=== PATIENT | male | born 2000 | race Caucasian/White ===

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

== ENCOUNTER 2020-01-06 05:13 | Inpatient (IN) | payer OTHER ==
[~2020-01-06] VITALS: Ht 193 cm; Wt 78.0 kg
[2020-01-06] VITALS (512 sets, daily range): BP systolic 101–109; BP diastolic 58–68; PULSE 73–105; TEMP 97.6–100.6; O2SAT 88–100
[2020-01-06 05:45] LABS: BASO # 0.1 (0.0-0.2); BASO % 0.5 % (0.0-2.0); EOS % 0.3 % (0-4.0); GRAN # 4.6 (1.4-6.5); GRAN % 47.2 % (42.2-75.2); HEMATOCRIT 46.9 % (36.0-47.0); HEMOGLOBIN 16.3 g/dl (12.5-16.1); LYMPH # 3.9 (1.2-3.4); LYMPH % 39.8 % (20.0-51.0); MEAN CELL VOLUME 82 fl (80.0-95.0); MEAN CORPUSCULAR HEMOGLOBIN 29 pg (26.0-32.0); MEAN CORPUSCULAR HGB CONC 35 g/dl (33.0-37.0); MEAN PLATELET VOLUME 9.6 fl (7.4-10.4); MONO # 1.2 (0.1-0.6); PLATELET COUNT 131 K/mm3 (130-400); RED BLOOD COUNT 5.69 M/mm3 (4.20-5.60); REDCELL DISTRIBUTION WIDTH-CV 12.3 % (11.5-14.5)
[2020-01-06 05:55] LABS: ALBUMIN 4.6 gm/dL (3.5-5.0); BILIRUBIN,TOTAL 1.4 mg/dL (0.0-1.0); CALCIUM 9.1 mg/dL (8.4-10.2); CREATININE, serum 1.08 (0.66-1.25); POTASSIUM 4.2 mmol/L (3.4-5.0); TOTAL PROTEIN 8.3 gm/dL (6.4-8.2)
[2020-01-06 06:08] LABS: C-REACTIVE PROTEIN 13.6 mg/dL (0.0-0.9)
[2020-01-06 06:20] LABS: COLLECTION METHOD CLEAN CATCH
[2020-01-06 07:06] LABS: HYALINE CAST >12 /lpf; MUCOUS Present /lpf; PH 5 (5-8); SQUAMOUS EPITHELIAL None Seen /hpf; URINE APPEARANCE Hazy; URINE BACTERIA None Seen /hpf; URINE BILIRUBIN Negative (NEGATIVE); URINE BLOOD Negative (NEGATIVE); URINE COLOR Amber; URINE GLUCOSE Negative (NEGATIVE); URINE KETONE Negative (NEGATIVE); URINE LEUKOCYTE ESTERASE Negative (NEGATIVE); URINE NITRATE Negative (NEGATIVE); URINE PROTEIN(semi-quant) 1+ (NEGATIVE); URINE RBC 0-2 /hpf; URINE UROBILINOGEN Negative (NEGATIVE)
--- NOTE | 2020-01-06 14:00 | NUR ---
came by patients room once notified about patient consult. he did not go into patients room but was notified of his case and spoke to the medical imaging technician about his echo and venous duplex results. He said he had no changes to make at this time.
[2020-01-06 18:17] LABS: INR 1.4 (0.8-3.0); PROTHROMBIN TIME 15.7 SECONDS (9.7-12.8)
[2020-01-06 18:20] LABS: PARTIAL THROMBOPLASTIN TIME 41.3 SECONDS (26.0-37.0)
--- NOTE | 2020-01-06 20:20 | NUR ---
called regarding consult on patient.
[2020-01-07] VITALS (402 sets, daily range): BP systolic 103–138; BP diastolic 53–70; PULSE 62–89; TEMP 98–98.9; O2SAT 93–100
[2020-01-07 03:04] LABS: GRAN # 3.9 (1.4-6.5); GRAN % 56.9 % (42.2-75.2); HEMATOCRIT 43.3 % (36.0-47.0); HEMOGLOBIN 15.3 g/dl (12.5-16.1); LYMPH # 1.8 (1.2-3.4); LYMPH % 26.4 % (20.0-51.0); MEAN CELL VOLUME 82 fl (80.0-95.0); MEAN CORPUSCULAR HEMOGLOBIN 29 pg (26.0-32.0); MEAN CORPUSCULAR HGB CONC 35 g/dl (33.0-37.0); MEAN PLATELET VOLUME 9.5 fl (7.4-10.4); MONO # 1.1 (0.1-0.6); MONO % 16.4 % (1.7-9.3); PLATELET COUNT 145 K/mm3 (130-400); RED BLOOD COUNT 5.28 M/mm3 (4.20-5.60); REDCELL DISTRIBUTION WIDTH-CV 12.2 % (11.5-14.5)
[2020-01-07 03:13] LABS: CALCIUM 9.1 mg/dL (8.4-10.2); CREATININE, serum 0.72 (0.66-1.25); POTASSIUM 4.6 mmol/L (3.4-5.0)
--- NOTE | 2020-01-07 08:16 | NUR ---
Patient alert and oriented, answers questions appropriately. See assessment. Lungs CTA, respers even and unlabored. No c/o SOA. VSS. No supplemental oxygen needed. Heart tones strong and even, pulses palpable. Patient c/o bilateral groin pain in upper aspect of groin. No lumps or swelling palpated to groin, no discoloration noted. Pulses palpable to BLE, homans negative. Patient asks appropriate questions r/t diagnosis and cares. Dr Crouch here to see patient. No other c/o at this time.
--- NOTE | 2020-01-07 09:03 | NUR ---
Dr Black here to see patient.
--- NOTE | 2020-01-07 09:19 | NUR ---
Hep XA not drawn at this time. Order to discontinue Heparin gtt in one hour after sq Lovenox given (0918). Reviewed Lovenox adminstration with patient, verbalied understanding. No c/o at this time.
--- NOTE | 2020-01-07 09:46 | NUR ---
Cytotechnologist/Cytology Supervisor contacted patient by phone as patient is COVID positive and in contact isolation. Patient lives in [place] with three roommates and is a student at [employer]. Patient reports he is from [place], [place] where his parents live, Mira (ph#[phone]) and Vinh (ph#[phone]). Patient states his primary care physician is Dr. Panchal in [place]. Patient states he has utilized [facility] on campus in the past. Patient's preferred pharmacy in [place] is [facility] on [address]. Patient does not use any DME and is independent with ADLS. Patient plans to return to his apartment at discharge. SW contacted patient's mother, Mira who reports she just spoke with patient's nurse to get an update. Mira states she is trying to convince patient to spend some time at home in [place] at discharge instead of returning straight to his apartment. LUNA then contacted the [facility] office of student life to notify them of patient's admit date. Patient to transfer up to the medical floor today and SW will continue to follow.
--- NOTE | 2020-01-07 11:39 | NUR ---
Attempted to call report to medical nurse, no answer.
--- NOTE | 2020-01-07 13:00 | NUR ---
Patient transferred to medical floor, all belongings sent with patient. Orientation to unit completed with patient.
--- NOTE | 2020-01-07 13:57 | NUR ---
Pt up to room 306 at 1300, escorted via WC by LESLEY Flores. Pt A&O, independent in room, on room air. tele applied. pt denies dizziness, SOB, n/v/d, numbness or tingling. Pt does have dry cough and states he has some chest discomfort from coughing. BS active, LS diminished, HRRR. No edema noted. Pulses strong bilaterally. RFA and LFA INT IVs both flush w/o difficulty. Pt requested and provided w/ water. No further needs at this time. pt laying in bed watching movie on personal computer.
--- NOTE | 2020-01-07 16:42 | NUR ---
Pt laying in bed watching [place] Girl on laptop, denies needs at this time, VSS.
--- NOTE | 2020-01-07 22:07 | NUR ---
Pt resting in bed watching show on lap top. Meds administered. C/O groin pain, pulses palpable, no discoloration, pt states able to ambulate w/o difficulty. INT to LFA and RFA intact, flushed, dressing CDI. Tele monitor in place. PRN tylenol administered. Water provided. States no concerns at this time. call light within reach. Pt requesting a shower, informed pt to notify staff when he is ready to shower.
[2020-01-08] VITALS: BP 112/78; PULSE 71; TEMP 97.6
--- NOTE | 2020-01-08 01:36 | NUR ---
Pt requested shower. Tele removed, television specialist notified. INT to LFA and RFA wrapped in plastic. Informed pt to notify staff when finished with shower.
[2020-01-08 05:26] VITALS: BP 114/66; PULSE 74; TEMP 98
--- NOTE | 2020-01-08 06:24 | NUR ---
Pt had a shower on this shift. no complaints made. call light within reach.
--- NOTE | 2020-01-08 06:48 | NUR ---
Report given to LESLEY Cooney.
[2020-01-08 07:14] LABS: BASO % 0.6 % (0.0-2.0); EOS # 0.1 (0.0-0.7); GRAN # 2.2 (1.4-6.5); GRAN % 43.4 % (42.2-75.2); HEMATOCRIT 40.7 % (36.0-47.0); HEMOGLOBIN 14.4 g/dl (12.5-16.1); LYMPH # 1.9 (1.2-3.4); LYMPH % 37.7 % (20.0-51.0); MEAN CELL VOLUME 83 fl (80.0-95.0); MEAN CORPUSCULAR HEMOGLOBIN 29 pg (26.0-32.0); MEAN CORPUSCULAR HGB CONC 35 g/dl (33.0-37.0); MEAN PLATELET VOLUME 10.1 fl (7.4-10.4); MONO # 0.9 (0.1-0.6); MONO % 16.9 % (1.7-9.3); PLATELET COUNT 175 K/mm3 (130-400); RED BLOOD COUNT 4.91 M/mm3 (4.20-5.60); REDCELL DISTRIBUTION WIDTH-CV 12.4 % (11.5-14.5)
[2020-01-08 07:30] LABS: CALCIUM 8.9 mg/dL (8.4-10.2); CREATININE, serum 0.88 (0.66-1.25); POTASSIUM 4.4 mmol/L (3.4-5.0)
[2020-01-08 08:20] VITALS: BP 122/72; PULSE 82; TEMP 97.5
--- NOTE | 2020-01-08 09:22 | NUR ---
Pt assessment completed and charted. Lovenox administered per may. Pt A&O, independent in room, laying in bed. pt on room air, breathing is even and unlabored, dry cough present. Pt denies chest pain, dizziness, N/V/D, numbness or tingling, abdominal pain. Pt c/o groin pain bilaterally, requested tylenol and provided. Pt has RFA and LFA INT IV's, both flush w/o difficulty. RFA INT IV appears red and pt states he has some tenderness, not receiving medications IV, will remove and keep LFA INT IV. Pulses strong bilaterally, HRRR, LS diminished throughout. No further needs expressed.
[2020-01-08 12:46] VITALS: PULSE 73; TEMP 97.5
--- NOTE | 2020-01-08 13:39 | NUR ---
Pt doing well, denies needs at this time. Belongings dropped off at ER entrance, delivered to patient.
[2020-01-08 17:45] VITALS: BP 123/72; PULSE 68; TEMP 98.6
[2020-01-08 19:54] VITALS: BP 120/70; PULSE 79; TEMP 98.1
--- NOTE | 2020-01-08 20:20 | NUR ---
Patient assessed at this time. Alert and oriented x 4, and able to make needs known. Reports pain to bilateral groin area. Given PRN APAP as requested for pain. Peripheral INT to left forearm flushed. Site is without redness, warmth, swelling, and pain. Denies having SOB and dyspnea. LS CTA. Respirations even and unlabored. Occasional dry cough. HRR. Telemetry in place: normal sinus. Capillary refill less than 3 seconds. Non-tenting skin turgor. BS hypoactive x 4. Reports no BM for a few days. Passing gas. No edema. Education provided on Eliquis, side effects to watch for, and lizeth of bleeding. Voiced understanding. Voices no further questions, needs, or concerns at this time. Resting in bed with call light within reach.
--- NOTE | 2020-01-08 20:45 | NUR ---
Spoke with patient's mom who called for an update. She was concerned about policy for taking patient home tomorrow, if she should quarantine, etc. Explained to patient that is she is in contact with patient, she should self quarantine, along with everyone else in the household. Voiced understanding. Voiced no further questions, needs, or concerns at this time.
[2020-01-09 00:04] VITALS: BP 120/70; PULSE 66; TEMP 97.7
[2020-01-09 04:00] VITALS: BP 116/74; PULSE 76; TEMP 98.2
--- NOTE | 2020-01-09 05:15 | NUR ---
Patient has been resting in bed this shift. Has voiced no questions, needs, or concerns this shift. Call light is within reach. Encouraged to call if needed.
[2020-01-09 07:58] VITALS: BP 110/88; PULSE 82; TEMP 99.3
--- NOTE | 2020-01-09 09:05 | NUR ---
Pt awake and alert upon entry to room, no C/O pain at this time, shift assessments complete, left Pt call light in reach, bed in lowest position.
[2020-01-09 12:37] VITALS: BP 119/72; PULSE 68; TEMP 99
[2020-01-09] MEDS ORDERED: ELIQUIS 5MG PO (13:05)
[2020-01-09] MEDS ORDERED: TYLENOL 325MG325 MG PO (13:05)
--- NOTE | 2020-01-09 15:30 | NUR ---
Pt discharged to home, discussed discharge information with Pt, answered questions. Escorted Pt to entrance, assisted Pt into vehicle, Pt left with family via private auto.
== END 2020-01-09 15:30 | disposition home or self-care (01) | DRG 177 ==
LOC: COL.ER 05:13 → MEDICAL 09:14 → ICU 09:14 → MEDICAL 01-07 14:04
PROVIDERS: Emergency Medicine; ADMIT Student in an Organized Health Care Education/Training Program
DX: U07.1 COVID-19 (principal); I26.99 Other pulmonary embolism without acute cor pulmonale; I21.4 Non-ST elevation (NSTEMI) myocardial infarction; I27.20 Pulmonary hypertension, unspecified
CPT/HCPCS: 99223-AI; 99233-AI; 99239; J1644; J1650; J2405; J2930; J3010; J7030; J7120; Q9967

== ENCOUNTER → 2020-04-23 | Outpatient (CLI) | payer OTHER ==
[~2020-04-23] MED LIST: ELIQUIS 5MG PO; TYLENOL 325MG325 MG PO
== END ==
LOC: COL.VAS 10:42
DX: I82.401 Acute embolism and thrombosis of unspecified deep veins of right lower extremity (principal)